=== PATIENT | male | born 1950 | race Caucasian/White ===

== ENCOUNTER 2019-06-13 11:46 | Emergency (ER) | payer MEDICARE, OTHER ==
[2019-06-13] MEDS ORDERED: Adacel Vial IM ONE ×2 (11:55→12:25)
--- NOTE | 2019-06-13 11:56 | ERPHSYRPT ---
- History of Present Illness Time Seen by Provider: 06/13/19 11:50 Source: patient Physician History: Using white washer piler, lost control of nozzle and it flashed across left thumb base causing a laceration at radial side base of L thumb. Timing/Duration: today Quality: painful Severity: moderate Location: hands ( base of Left thumb) Allergies/Adverse Reactions: No Known Drug Allergies Allergy (Verified 06/13/19 12:06) Home Medications: Amiodarone HCl 200 mg [Cordarone 200 MG] 200 mg PO DAILY 03/21/15 [History ] Aspirin [Aspir-Low] 81 mg DAILY 03/21/15 [History] Cefepime HCl/D5w [Cefepime-Dextrose 2 gm/50 ml] 2 gm IV BID 03/21/15 [History] Ergocalciferol (Vitamin D2) [Vitamin D2] 50,000 unit PO Q7D 03/21/15 [History] Ferrous Sulfate 325 mg [Feosol 325 mg] 325 mg PO DAILY 03/21/15 [History] Hydrocodone Bit/Acetaminophen [[place] 5/325Mg] 1 each PO Q4H PRN PRN 03/21/15 [ History] Metoprolol Tartrate 25 mg [Lopressor 25MG Tab] 25 mg PO BID 03/21/15 [ History] Tamsulosin HCl 0.4 mg [Flomax 0.4 MG] 0.4 mg PO DAILY 03/21/15 [History] Warfarin Sodium 5 mg [Coumadin 5 MG] 5 mg PO DAILY 03/21/15 [History] - Review of Systems Constitutional: No Symptoms Respiratory: No Symptoms Cardiac: No Symptoms Musculoskeletal: Other (Laceration) Skin: Other (Laceration) All Other Systems: Reviewed and Negative - Past Medical History Neurological History: TIA ENT History: No Pertinent History Cardiac History: Arrhythmia, Hypertension Respiratory History: No Pertinent History Endocrine Medical History: No Pertinent History Musculoskeletal History: No Pertinent History GI Medical History: No Pertinent History History: No Pertinent History Psycho-Social History: No Pertinent History Male Reproductive Disorders: No Pertinent History - Past Surgical History Past Surgical History: Yes Neuro Surgical History: No Pertinent History Cardiac: CABG, Cardiac Catheterization, Pacemaker, Valve Replacement Respiratory: No Pertinent History Gastrointestinal: No Pertinent History Genitourinary: No Pertinent History Musculoskeletal: Orthopedic Surgery Male Surgical History: No Pertinent History Other Surgical History: back surgery, - Social History Smoking Status: Former smoker Exposure to second hand smoke: No Drug Use: none - Nursing Vital Signs Nursing Vital Signs: Initial Vital Signs Temperature 98 F 06/13/19 11:49 Pulse Rate 91 H 06/13/19 11:49 Respiratory Rate 20 06/13/19 11:49 Blood Pressure 132/97 06/13/19 11:49 O2 Sat by Pulse Oximetry 96 06/13/19 11:49 Pain Scale Pain Intensity 6 - Physical Exam General Appearance: no apparent distress Ears, Nose, Throat Exam: normal ENT inspection Neck Exam: normal inspection, supple, full range of motion Respiratory Exam: airway intact Cardiovascular Exam: regular rate/rhythm Skin Exam: normal color, warm, dry SpO2 Interpretation: normal O2 Delivery: Room Air Procedures - Laceration/Wound Repair Left Hand Wound Location: Left, hand (radial side of base of left thumb) Wound Length (cm): 3.5 Wound's Depth, Shape: superficial (full thicknes not into underlying tissues), linear Wound Explored: clean Irrigated: Yes Hibiclens Prep: Yes Anesthesia: local, 1% Lidocaine Volume Anesthetic (ccs): 5 Wound Repaired With: [place] (7) - Course Nursing assessment & vital signs reviewed: Yes Ordered Tests: Medication Summary Discontinued Medications Generic Name Dose Route Start Last Admin Trade Name Freq PRN Reason Stop Dose Admin Diphtheria/Tetanus/Acell Pertussis 0.5 ml 06/13/19 11:55 06/13/19 12:26 Adacel Vial IM 06/13/19 11:56 0.5 ml .ONCE ONE Administration Diphtheria/Tetanus/Acell Pertussis Confirm 06/13/19 12:25 Adacel Vial Administered 06/13/19 12:26 Dose 0.5 ml IM .STK-MED ONE Lidocaine HCl Confirm 06/13/19 12:31 Xylocaine 1% Hcl 20 Ml Mdv Administered 06/13/19 12:32 Dose 5 ml .ROUTE .STK-MED ONE - Progress Progress: improved Progress Note: 06/13/19 13:02 Post staple/bandage/sling placement - has neuro/vascular intact distal thumb - stated he can feel touch. - Departure Departure Disposition: Home Clinical Impression: Laceration of thumb Qualifiers: Encounter type: initial encounter Damage to nail status: without damage Foreign body presence: without foreign body Laterality: left Qualified Code(s): S61.012A - Laceration without foreign body of left thumb without damage to nail , initial encounter Condition: Stable Critical Care Time: No Referrals: NATIVIDAD SUN [Primary Care Provider] - Instructions: Laceration Repair With Shine (DC) Additional Instructions: Keep bandage in place until Sunday - the bandage needs to keep pressure on the wound to keep the bleeding from starting up again. Although you are on blood thinners the clotting proces is working - numbing the wound and stapling stirred up the bleeding process which will be controlled with pressure. The shine are holding the edges of the wound closely together even if one is on top of another. Shine out in 7 days; watch for signs of infection. The sling is to keep the hand from dangling down and will help control the bleeding tendency,.
[2019-06-13] MEDS ORDERED: XYLOCAINE 1% HCL 20 ML MDV ONE (12:31)
[2019-06-13 13:23] VITALS: BP 156/118; PULSE 92; O2SAT 92
== END 2019-06-13 13:20 | disposition home or self-care (01) ==
LOC: ED 11:46
DX: S61.012A Laceration without foreign body of left thumb without damage to nail, initial encounter (principal); W45.8XXA Other foreign body or object entering through skin, initial encounter
CPT/HCPCS: 12002; 90471; 90715; 99283

== ENCOUNTER 2025-08-31 09:43 | Day surgery (SDC) | payer MEDICARE, OTHER ==
--- NOTE | 2025-08-31 07:37 | HP ---
HISTORY: A 75-year-old with nodule in the past month or two in the right axillary area. He says it is mobile. PAST MEDICAL HISTORY: Hypertension, BPH, hyperlipidemia, some heart disease. PAST SURGICAL HISTORY: Had cardiac cath in the past, had femoral stents in the past, had aortic valve replacement in the past, had back surgery in the past, and a CABG x1 vessel in the past. HOME MEDICATIONS: Atorvastatin, tamsulosin, warfarin, amlodipine, clopidogrel. ALLERGIES: No known drug allergies. FAMILY HISTORY: Cancer and heart disease. SOCIAL HISTORY: Half pack a day smoker. Denies alcohol abuse. REVIEW OF SYSTEMS: Twelve systems reviewed. No chest pain or palpitations. Other systems negative or noncontributory as above and per preadmission questionnaire. PHYSICAL EXAMINATION: GENERAL: No acute distress. VITAL SIGNS: Height 5 feet 9 inches. BMI 32.49. HEENT: Sclerae nonicteric. NECK: No JVD. CHEST: Equal excursion. Nonlabored breathing. CARDIOVASCULAR: Regular rate and rhythm. ABDOMEN: Soft. EXTREMITIES: No cyanosis or edema. NEUROLOGIC: Alert and oriented. Moving all extremities symmetrically. PSYCHIATRIC: Appropriate mood and affect. SKIN: Otherwise dry. IMPRESSION: Persistent right axilla cyst or nodule. Recommend excision secondary to long-term risk of infection. Risk of bleeding; infection, possibly requiring packing; risk of hematoma, seroma, aches, pains, burning, or numbness as well as risk of anesthesia, DVT, PE, pneumonia. Hold his thinners preop. We will get cardiac clearance. Otherwise, continue to be managed for heart disease, hypertension, hyperlipidemia, and BPH. We will proceed with outpatient under general excisional biopsy of axilla cyst or nodule as an outpatient.
[2025-08-31] MEDS ORDERED: Lactated Ringers 1,000 ML IV ONE (10:03)
[2025-08-31] MEDS ORDERED: CEFAZOLIN SODIUM ONE (10:03)
[2025-08-31] MEDS: Lactated Ringers 1,000 ML IV SCH (10:18)
[2025-08-31 10:26] VITALS: RESP 16
[2025-08-31 10:41] LABS: Calcium 10.0 mg/dL (8.4-10.2); Carbon Dioxide 25.0 mmol/L (22-30); Creatinine 1 1.3 mg/dL (0.66-1.25); EST GLOMERULAR FILTRATION RATE 57.3 ML/MIN; Glucose 112.0 mg/dL (74-106); Potassium 4.4 mmol/L (3.5-5.1); SGOT/AST 20.0 U/L (17-59); SGPT/ALT 13.0 U/L (0-50); Total Protein 7.6 g/dL (6.3-8.2)
[2025-08-31] MEDS ORDERED: Xylocaine-Mpf 2% 5 Ml Vial ONE (11:53)
[2025-08-31] MEDS ORDERED: propofoL IV ONE (11:53)
[2025-08-31] MEDS ORDERED: Zofran 4 MG/2 ML VIAL ONE (12:11)
[2025-08-31] MEDS ORDERED: PHENYLEPHRINE HCL ONE (12:14)
[2025-08-31] MEDS ORDERED: Sensorcaine 0.25% 10 ML ONE (12:16)
[2025-08-31] MEDS ORDERED: Quelicin Fliptop 200 MG/10 ML ONE (12:19)
[2025-08-31] MEDS ORDERED: SUBLIMAZE 100 MCG/2 ML ONE ×2 (12:26→13:10)
[2025-08-31] MEDS ORDERED: Ephedrine Sulfate 50 MG/ML ONE (12:31)
[2025-08-31 13:39] VITALS: PULSE 70
[2025-08-31 13:55] VITALS: BP 121/78; TEMP 97.4; O2SAT 93
--- NOTE | 2025-09-02 10:38 | OP ---
SURGERY DATE/TIME: 08/31/2025 [id number] PREOPERATIVE DIAGNOSIS: Persistent and enlarged nodular cyst right axilla. POSTOPERATIVE DIAGNOSIS: Persistent and enlarged nodular cyst right axilla. PROCEDURE: Excisional biopsy of nodular cyst right axilla (approximately 2 cm margin). SURGEON: Jose Juan Adkins MD ANESTHESIA: General. ESTIMATED BLOOD LOSS: Minimal. INDICATIONS: Consent was obtained. Risks and benefits explained in detail, but not limited to. Noted in preop, the patient with a lesion on his thumb. This appeared to be wart-like. It is felt this directly adjacent to his nail. It was felt he needs to follow up with his primary to consider some topical type treatments. It is not felt to need surgical intervention today. The site of the nodular cyst on the right axilla was marked. DESCRIPTION OF PROCEDURE AND FINDINGS: Patient taken to the operating room. General anesthesia was induced. He was prepped and draped in sterile fashion. After official time-out and no disagreement with planned procedure, marking out around this area in a spindle-shaped fashion. Dissection was carried down to normal-appearing subcutaneous tissue beneath. This was passed off for pathology. This nodular cyst was about 2 cm margin. Underlying subcu was unremarkable and soft. The subcu was closed with 3-0 Vicryl. Skin closed with 4-0 Vicryl and a couple of layers of Dermabond and once that was dry, a sterile pressure dressing will be applied. Patient tolerated the procedure well. Findings discussed with family in waiting area.
== END 2025-08-31 14:10 | disposition home or self-care (01) ==
LOC: SDC 09:43
PROVIDERS: ATTEND Surgery
DX: L72.0 Epidermal cyst (principal); L02.411 Cutaneous abscess of right axilla